=== PATIENT | female | born 1985 | race African-American/Black ===

== ENCOUNTER 2017-11-24 13:25 | Emergency (ER) | payer SELFPAY | END 2017-11-24 14:36 | disposition home or self-care (01) | LOC: ER 13:25 | DX: S93.402A Sprain of unspecified ligament of left ankle, initial encounter (principal); Z88.0 Allergy status to penicillin; W18.39XA Other fall on same level, initial encounter; Y93.K1 Activity, walking an animal; Y92.89 Other specified places as the place of occurrence of the external cause; Y99.8 Other external cause status | CPT/HCPCS: 73610; 99284 ==

== ENCOUNTER 2018-03-07 23:13 | Emergency (ER) | payer SELFPAY ==
[2018-03-07] MEDS: HYDROcodone/APAP 5/325MG 1 TAB TABLET PO (23:42)
[2018-03-07] MEDS: DIPHTH,PERTUSS(ACELL),TET TOX 0.5 ML DISP.SYRIN. VAX IM (23:43)
== END 2018-03-08 00:49 | disposition home or self-care (01) ==
LOC: ER 03-08 00:49
DX: S92.811A Other fracture of right foot, initial encounter for closed fracture (principal); Z98.51 Tubal ligation status; Z88.0 Allergy status to penicillin; X50.1XXA Overexertion from prolonged static or awkward postures, initial encounter; Y93.89 Activity, other specified; Y92.89 Other specified places as the place of occurrence of the external cause; Y99.8 Other external cause status
CPT/HCPCS: 29515; 73630; 90471; 90715; 99284

== ENCOUNTER 2021-08-08 13:50 | Emergency (ER) | payer SELFPAY ==
[~2021-08-08] VITALS: Ht 149.9 cm; Wt 64.0 kg
[~2021-08-08 13:50] MED LIST: HYDR-3164 PO
[2021-08-08 14:57] VITALS: BP 139/85
[2021-08-09] MEDS ORDERED: ONDA4TAB7 PO (13:08)
[2021-08-09] MEDS ORDERED: HYDR-2761 PO (13:08)
== END 2021-08-08 21:04 | disposition left against medical advice (07) ==
LOC: ER 13:50
DX: R10.9 Unspecified abdominal pain (principal); Z53.21 Procedure and treatment not carried out due to patient leaving prior to being seen by health care provider

== ENCOUNTER 2021-08-09 08:53 | Emergency (ER) | payer SELFPAY ==
[~2021-08-09] VITALS: Ht 149.9 cm; Wt 64.9 kg
--- NOTE | 2021-08-09 09:27 | PHYS DOC ---
Past Medical History Past Medical History: No Pertinent History Past Surgical History: Appendectomy, Tubal ligation Smoking Status: Never Smoker Alcohol Use: None Drug Use: None General Adult EDM: Chief Complaint: ABDOMINAL PAIN HPI: HPI: Patient is a 35-year-old female that presents today with right upper quadrant abdominal pain. Patient states pain started last and is progressively gotten worse, she has multiple bouts of nausea and vomiting, denies diarrhea. Patient denies fever or chills. Review of Systems: Review of Systems: Constitutional: Denies fever or chills. [] Eyes: Denies change in visual acuity. [] HENT: Denies nasal congestion or sore throat. [] Respiratory: Denies cough or shortness of breath. [] Cardiovascular: Denies chest pain or edema. [] GI: abdominal pain, nausea, vomiting, denies bloody stools or diarrhea. [] : Denies dysuria. [] Musculoskeletal: Denies back pain or joint pain. [] Integument: Denies rash. [] Neurologic: Denies headache, focal weakness or sensory changes. [] Endocrine: Denies polyuria or polydipsia. [] Lymphatic: Denies swollen glands. [] Psychiatric: Denies depression or anxiety. [] Heart Score: C/O Chest Pain: N/A Risk Factors: Risk Factors: DM, Current or recent (<one month) smoker, HTN, HLP, family history of CAD, obesity. Risk Scores: Score 0 - 3: 2.5% MACE over next 6 weeks - Discharge Home Score 4 - 6: 20.3% MACE over next 6 weeks - Admit for Clinical Observation Score 7 - 10: 72.7% MACE over next 6 weeks - Early Invasive Strategies Current Medications: Current Medications Medications (Trade) Dose Ordered Sig/Lindsey Start Time Stop Time Status Last Admin Dose Admin Fentanyl Citrate (Fentanyl 2ml Vial) 50 mcg 1X ONCE 08/09/21 09:30 08/09/21 09:31 Ondansetron HCl (Zofran) 4 mg 1X ONCE 08/09/21 09:30 08/09/21 09:31 Sodium Chloride 1,000 ml @ 999 mls/hr 1X ONCE 08/09/21 09:30 08/09/21 10:30 Allergies: Allergies: Allergies Coded Allergies Type Severity Reaction Last Updated Verified Penicillins Allergy Intermediate 12/04/14 Yes Physical Exam: PE: Constitutional: Well developed, well nourished, no acute distress, non-toxic a ppearance. [] HENT: Normocephalic, atraumatic, bilateral external ears normal, oropharynx moist, no oral exudates, nose normal. [] Eyes: PERRLA, EOMI, conjunctiva normal, no discharge. [] Neck: Normal range of motion, no tenderness, supple, no stridor. [] Cardiovascular:Heart rate regular rhythm, no murmur [] Lungs & Thorax: Bilateral breath sounds clear to auscultation [] Abdomen: Bowel sounds hypoactive, severe right upper quadrant epigastric pain with palpation [] Skin: Warm, dry, no erythema, no rash. [] Back: No tenderness, no CVA tenderness. [] Extremities: No tenderness, no cyanosis, no clubbing, ROM intact, no edema. [] Neurologic: Alert and oriented X 3, normal motor function, normal sensory function, no focal deficits noted. [] Psychologic: Affect normal, judgement normal, mood normal. [] Current Patient Data: Labs: Laboratory Tests Test 08/09/21 09:10 08/09/21 09:14 08/09/21 09:20 Urine Collection Type Void Urine Color Kavitha Urine Clarity Cloudy Urine pH 5.5 Urine Specific [place] 1.020 Urine Protein Negative mg/dL Urine Glucose (UA) Negative mg/dL Urine Ketones (Stick) Negative mg/dL Urine Blood Trace Urine Nitrite Negative Urine Bilirubin Negative Urine Urobilinogen Dipstick 2.0 mg/dL Urine Leukocyte Esterase Large Urine RBC 1-2 /HPF Urine WBC 20-40 /HPF Urine Squamous Epithelial Cells Many /LPF Urine Bacteria Moderate /HPF Bedside Urine HCG, Qualitative Hcg negative White Blood Count 6.5 x10^3/uL Red Blood Count 5.65 x10^6/uL Hemoglobin 14.2 g/dL Hematocrit 42.4 % Mean Corpuscular Volume 75 fL Mean Corpuscular Hemoglobin 25 pg Mean Corpuscular Hemoglobin Concent 33 g/dL Red Cell Distribution Width 13.6 % Platelet Count 427 x10^3/uL Neutrophils (%) (Auto) 65 % Lymphocytes (%) (Auto) 25 % Monocytes (%) (Auto) 7 % Eosinophils (%) (Auto) 3 % Basophils (%) (Auto) 1 % Neutrophils # (Auto) 4.2 x10^3/uL Lymphocytes # (Auto) 1.6 x10^3/uL Monocytes # (Auto) 0.4 x10^3/uL Eosinophils # (Auto) 0.2 x10^3/uL Basophils # (Auto) 0.1 x10^3/uL Sodium Level 135 mmol/L Potassium Level 3.4 mmol/L Chloride Level 98 mmol/L Carbon Dioxide Level 30 mmol/L Anion Gap 7 Blood Urea Nitrogen 10 mg/dL Creatinine 0.6 mg/dL Estimated GFR (Cockcroft-Gault) 138.5 BUN/Creatinine Ratio 17 Glucose Level 136 mg/dL Calcium Level 8.5 mg/dL Total Bilirubin 0.5 mg/dL Aspartate Amino Transf (AST/SGOT) 21 U/L Alanine Aminotransferase (ALT/SGPT) 27 U/L Alkaline Phosphatase 97 U/L Total Protein 7.6 g/dL Albumin 3.4 g/dL Albumin/Globulin Ratio 0.8 Lipase 96 U/L Current Medications Medications (Trade) Dose Ordered Sig/Lindsey Route PRN Reason Start Time Stop Time Status Last Admin Dose Admin Fentanyl Citrate (Fentanyl 2ml Vial) 50 mcg 1X ONCE IVP 08/09/21 09:30 08/09/21 09:31 DC 08/09/21 09:43 Ondansetron HCl (Zofran) 4 mg 1X ONCE IVP 08/09/21 09:30 08/09/21 09:31 DC 08/09/21 09:43 Sodium Chloride 1,000 ml @ 999 mls/hr 1X ONCE IV 08/09/21 09:30 08/09/21 10:30 08/09/21 09:45 Laboratory Tests Test 08/09/21 09:14 POC Urine HCG, Qualitative Hcg negative (Negative) Vital Signs: Vital Signs Date Time Temp Pulse Resp B/P (MAP) Pulse Ox O2 Delivery O2 Flow Rate FiO2 08/09/21 13:14 94 132/76 (94) 98 Room Air 08/09/21 12:14 98 138/103 (115) 98 Room Air 08/09/21 11:14 98 145/94 (111) 98 Room Air 08/09/21 10:14 82 128/82 (97) 98 Room Air 08/09/21 09:43 97 Room Air 08/09/21 09:14 86 127/73 (91) 98 Room Air 08/09/21 09:10 98.2 104 16 142/88 (106) 99 Room Air 98.2 Vital Signs Date Time Temp Pulse Resp B/P (MAP) Pulse Ox O2 Delivery O2 Flow Rate FiO2 08/09/21 10:14 82 128/82 (97) 98 Room Air 08/09/21 09:43 97 Room Air 08/09/21 09:14 86 127/73 (91) 98 Room Air 08/09/21 09:10 98.2 104 16 142/88 (106) 99 Room Air 98.2 EKG: EKG: [] Radiology/Procedures: Radiology/Procedures: REASON: right upper quad abdominal pain PROCEDURE: ABDOMEN LTD EXAM: Abdomen sonogram. HISTORY: Pain. TECHNIQUE: Sonographic imaging of the abdomen was performed. COMPARISON: None. FINDINGS: The liver is normal in size. There is hepatic steatosis. There is cholelithiasis. There is gallbladder wall thickening. The right kidney, pancreas and inferior vena cava are unremarkable. The common bile duct is borderline d ilated for patient age, measuring 5.5 mm. IMPRESSION: 1. Cholelithiasis with suspected superimposed cholecystitis. 2. Borderline dilated common bile duct for patient age, measuring 5.5 mm. 3. Hepatic steatosis. [] Course & Med Decision Making: Course & Med Decision Making Pertinent Labs and Imaging studies reviewed. (See chart for details) 1050 spoke with patient patient says her pain is down to a 1 or 2/10, spoke with Dr. Toledo he is agreeable to either admission or discharge. Spoke to patient patient is agreeable to admission will page the hospitalist. [address] Filemon Colbert says to challenge patient with some p.o. food and fluids and if patient tolerates that patient can not be admitted be sent home and follow-up with Dr. Toledo on outpatient basis with strict return precautions 1300 patient was given low-fat diet patient ate about 10 to 15% of diet and drink some fluids and did not have any nausea or vomiting at this time. We will send patient home with oral pain medications and Zofran. Will instruct patient to return for increased pain, nausea vomiting not controlled with Zofran, or fever and chills . [] Dragon Disclaimer: Dragon Disclaimer: This electronic medical record was generated, in whole or in part, using a voice recognition dictation system. Departure Departure Impression: Primary Impression: Cholecystitis, acute with cholelithiasis Qualified Codes: K80.00 - Calculus of gallbladder with acute cholecystitis without obstruction Disposition: HOME / SELF CARE / HOMELESS Admitting Physician: HIMS Condition: STABLE Referrals: NO PCP (PCP) KARLA JOSE MD Patient Instructions: Cholecystitis, Diet for Gastroesophageal Reflux Disease, Adult Additional Instructions: Follow a low-fat diet, making sure to keep by mouth fluids increased Take [place] as needed for severe pain Take Zofran as needed for nausea and vomiting, wait 30 minutes after taking Zofran before trying by mouth fluids [id number] Pepcid as labeled directed Return to the emergency department for increased abdominal pain or bloating, nausea vomiting not relieved by the Zofran, or fever and chills. Scripts Hydrocodone Bit/Acetaminophen (HYDROCODONE-APAP 5-325 ) 1 Tab Tablet 1 TAB PO PRN Q6HRS PRN for PAIN, #20 TAB 0 Refills Prov: BURKE DAV[employer]A [employer] ATTEND[employer] 08/09/21 Ondansetron Hcl (ZOFRAN) 4 Mg Tablet 1 TAB PO PRN Q4HRS PRN for ABDOMINAL PAIN, #20 TAB Prov: BURKE [employer] ATTEND[employer] 08/09/21 B[employer]KE [employer] ATTEND[employer] Aug 09, 2021 09:27
[2021-08-09] MEDS ORDERED: ONDANSETRON PF 4 MG/2 ML VIAL. IVP ONE (09:30)
[2021-08-09] MEDS ORDERED: fentaNYL PF VIAL 100 MCG/2 ML VIAL IVP ONE (09:30)
[2021-08-09] MEDS ORDERED: IV NORMAL SALINE 1000ML BAG 1,000 ML IV ONE (09:30)
[2021-08-09 09:33] LABS: BASO # 0.1 x10^3/uL (0.0-0.2); BASO % 1 % (0-3); EOS # 0.2 x10^3/uL (0.0-0.7); EOS % 3 % (0-3); HEMATOCRIT 42.4 % (36.0-47.0); HEMOGLOBIN 14.2 g/dL (12.0-15.5); LYMPH # 1.6 x10^3/uL (1.0-4.8); LYMPH % 25 % (24-48); MEAN CORPUSCULAR HEMOGLOBIN 25 pg (25-35); MEAN CORPUSCULAR HGB CONC 33 g/dL (31-37); MEAN CORPUSCULAR VOLUME 75 fL (79-100); MONO # 0.4 x10^3/uL (0.0-1.1); MONO % 7 % (0-9); NEUT # 4.2 x10^3/uL (1.8-7.7); NEUT % 65 % (31-73); PLATELET COUNT 427 x10^3/uL (140-400); RED BLOOD COUNT 5.65 x10^6/uL (3.50-5.40); RED CELL DISTRIBUTION WIDTH 13.6 % (11.5-14.5); WHITE BLOOD COUNT 6.5 x10^3/uL (4.0-11.0)
[2021-08-09 09:35] LABS: BILIRUBIN,URINE NEGATIVE (NEG); CLARITY,URINE CLOUDY; COLOR,URINE AMBER; NITRITE,URINE NEGATIVE (NEG); PH,URINE 5.5 (<5.0-8.0); PROTEIN,URINE NEGATIVE (NEG-TRACE)
[2021-08-09 09:40] LABS: CALCIUM 8.5 mg/dL (8.5-10.1); CREATININE 0.6 mg/dL (0.6-1.0); GFR 138.5; POTASSIUM 3.4 mmol/L (3.5-5.1)
[2021-08-09 09:40] LABS: BACTERIA,URINE MODERATE /HPF (0-FEW); WBC,URINE 20-40 /HPF (0-4)
[2021-08-09 09:46] LABS: ALBUMIN 3.4 g/dL (3.4-5.0); ALBUMIN/GLOBULIN RATIO 0.8 (1.0-1.7); TOTAL BILIRUBIN 0.5 mg/dL (0.2-1.0); TOTAL PROTEIN 7.6 g/dL (6.4-8.2)
--- NOTE | 2021-08-09 10:19 | RAD ---
EXAM: Abdomen sonogram. HISTORY: Pain. TECHNIQUE: Sonographic imaging of the abdomen was performed. COMPARISON: None. FINDINGS: The liver is normal in size. There is hepatic steatosis. There is cholelithiasis. There is gallbladder wall thickening. The right kidney, pancreas and inferior vena cava are unremarkable. The common bile duct is borderline dilated for patient age, measuring 5.5 mm. IMPRESSION: 1. Cholelithiasis with suspected superimposed cholecystitis. 2. Borderline dilated common bile duct for patient age, measuring 5.5 mm. 3. Hepatic steatosis. Electronically signed by: Ju Woody MD (08/09/2021 10:17 AM) [id number]
[2021-08-09] MEDS ORDERED: ONDA4TAB7 PO (13:08)
[2021-08-09] MEDS ORDERED: HYDR-2761 PO (13:08)
[2021-08-09 13:14] VITALS: BP 132/76
== END 2021-08-09 13:30 | disposition home or self-care (01) ==
LOC: ER 10:46
DX: K80.00 Calculus of gallbladder with acute cholecystitis without obstruction (principal); Z90.89 Acquired absence of other organs; Z98.51 Tubal ligation status; Z88.0 Allergy status to penicillin
CPT/HCPCS: 36415; 76705; 80053; 81001; 81025; 83690; 85025; 87086; 96361; 96374; 96375; 99285; J2405; J3010; J7030